=== PATIENT | female | born 2000 | race Caucasian/White ===

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

== ENCOUNTER 2018-02-20 09:01 | Emergency (ER) | END 2018-02-20 11:05 | disposition home or self-care (01) ==

== ENCOUNTER 2018-02-28 01:43 | Emergency (ER) | END 2018-02-28 04:16 | disposition home or self-care (01) ==

== ENCOUNTER 2019-03-30 15:04 | Emergency (ER) | payer BC ==
[~2019-03-30] VITALS: Ht 162.6 cm; Wt 66.0 kg
[~2019-03-30 15:04] MED LIST changes: +ACET1TAB40 PO; +ACET500C5 PO; +CEPH-443 PO; +HYDR-4011 PO; -HYDR-906 PO; +IBUP-1561 PO; -IBUP400T22 PO; +IBUP800T48 PO; +NITR-58 PO; +PHEN-538 PO; +PRED20TA PO; +TRAM50TA PO
[2019-03-30 15:30] VITALS: BP 126/66; PULSE 82; RESP 18; Ht 162.6 cm; Wt 66.0 kg
[2019-03-30] MEDS ORDERED: ONDANSETRON (ODT) 4 MG TAB ODT STA (16:26)
[2019-03-30] MEDS ORDERED: HYDROCODONE/APAP (5/325) TAB PO ONE (16:30)
[2019-03-30] MEDS ORDERED: CEPHALEXIN 500 MG CAP PO ONE (18:00)
[2019-03-30] MEDS ORDERED: IBUPROFEN 600 MG TAB PO ONE (18:00)
== END 2019-03-30 18:01 | disposition home or self-care (01) ==
LOC: FTE 15:04
DX: N30.00 Acute cystitis without hematuria (principal); N83.202 Unspecified ovarian cyst, left side
CPT/HCPCS: 76830; 76856; 81003; 81025; 87591; 99284; Z7610